=== PATIENT | male | born 1965 | race Caucasian/White ===

== ENCOUNTER → 2017-03-02 13:29 | Outpatient (CLI) | payer BC ==
[2014-12-26 10:28] VITALS: BMI 33.3
[~2017-03-02 13:29] MED LIST: ALBUTEROL2.5 MG/3 M INH; BENZONATATE200 MG PO; BREO ELLIPTA 21 EACH IH; ELIQUIS5 MG PO; FEXOFENADINE HC60 MG PO; FLUTICASONE PRO16 GM NASAL; IPRAT-ALBUT 0.5-3 ML UPD; LEVAQUIN500 MG PO; PROTONIX40 MG PO; SINGULAIR10 MG PO; TRICOR145 MG PO; ZANTAC150 MG PO
== END | disposition home or self-care (01) ==
LOC: D.US 13:29
DX: R60.0 Localized edema (principal); M25.561 Pain in right knee

== ENCOUNTER 2017-03-29 00:08 | Inpatient (IN) | payer BC ==
[~2017-03-29] VITALS: Ht 185.4 cm; Wt 94.7 kg
[~2017-03-29 00:08] MED LIST changes: -ALBUTEROL2.5 MG/3 M INH; -BENZONATATE200 MG PO; -BREO ELLIPTA 21 EACH IH; -ELIQUIS5 MG PO; -FEXOFENADINE HC60 MG PO; -FLUTICASONE PRO16 GM NASAL; -IPRAT-ALBUT 0.5-3 ML UPD; -LEVAQUIN500 MG PO; -PROTONIX40 MG PO; -SINGULAIR10 MG PO; -TRICOR145 MG PO
[2017-03-29 00:38] LABS: BASOPHILS 0.2 % (0-2); EOSINOPHILS 2.1 % (0-7); HEMATOCRIT 42.8 % (42.0-54.0); HEMOGLOBIN 14.7 g/dL (13.5-17.5); IMMATURE GRANULOCYTES 0.4 % (0-5); LYMPHOCYTES 7.9 % (15-50); MCH 30.9 pg (26.0-34.0); MCHC 34.3 g/dL (31.0-37.0); MCV 89.9 fL (80.0-100.0); MEAN PLATELET VOLUME 9.9 fL (7.4-10.4); MONOCYTES 8.6 % (2-11); NEUTROPHILS 80.8 % (40-80); PLATELET COUNT 188 10x3/uL (130-400); RBC 4.76 10x6/uL (4.20-6.10); RDW 13.3 % (11.5-14.5); WBC 9.5 10x3/uL (4.8-10.8)
[2017-03-29 00:56] LABS: ALBUMIN 4.2 g/dL (3.4-5.0); ALKALINE PHOSPHATASE 98 U/L (46-116); ALT (SGPT) 51 U/L (10-68); BILIRUBIN - TOTAL 0.79 mg/dL (0.2-1.3); CALC OSMOLALITY 278 mosm/kg (275-300); CALCIUM 9.4 mg/dL (8.5-10.1); CARBON DIOXIDE 23.8 mmol/L (21.0-32.0); CHLORIDE - SERUM 102 mmol/L (98-107); CREATININE - SERUM 1.3 mg/dL (0.6-1.3); GLUCOSE 118 mg/dL (74-106); INR 1.05 (0.85-1.17); POTASSIUM - SERUM 3.9 mmol/L (3.5-5.1); PROTEIN - SERUM 7.3 g/dL (6.4-8.2); PROTIME 13.3 SECONDS (11.6-15.0); SODIUM 138 mmol/L (136-145); UREA NITROGEN 17 mg/dL (7-18); eGFR NON AFRICAN AMERICAN 62 mL/min (90-120)
[2017-03-29 00:59] LABS: LIPASE 154 U/L (73-393)
[2017-03-29 01:00] LABS: TROPONIN-I < 0.017 ng/mL (0.000-0.060)
[2017-03-29 01:10] LABS: D-DIMER-QUANTITATIVE < 0.27 ug/mLFEU (0.20-0.54)
[2017-03-29] MEDS ORDERED: ELIQUIS5 MG PO (03:45)
[2017-03-29] MEDS ORDERED: TRICOR145 MG PO (03:45)
[2017-03-29 04:19] VITALS: Ht 185.4 cm; Wt 94.7 kg
[2017-03-29 05:14] VITALS: BP 106/59
[2017-03-29 06:12] LABS: BASOPHILS 0.5 % (0-2); EOSINOPHILS 1.1 % (0-7); HEMATOCRIT 40.2 % (42.0-54.0); HEMOGLOBIN 13.6 g/dL (13.5-17.5); IMMATURE GRANULOCYTES 0.5 % (0-5); LYMPHOCYTES 4.8 % (15-50); MCH 30.6 pg (26.0-34.0); MCHC 33.8 g/dL (31.0-37.0); MCV 90.5 fL (80.0-100.0); MEAN PLATELET VOLUME 10.3 fL (7.4-10.4); MONOCYTES 5.2 % (2-11); NEUTROPHILS 87.9 % (40-80); PLATELET COUNT 161 10x3/uL (130-400); RBC 4.44 10x6/uL (4.20-6.10); RDW 13.5 % (11.5-14.5)
[2017-03-29 06:14] LABS: WBC 6.3 10x3/uL (4.8-10.8)
[2017-03-29 06:38] LABS: ALBUMIN 3.6 g/dL (3.4-5.0); ALKALINE PHOSPHATASE 81 U/L (46-116); ALT (SGPT) 43 U/L (10-68); BILIRUBIN - TOTAL 0.87 mg/dL (0.2-1.3); CALC OSMOLALITY 280 mosm/kg (275-300); CALCIUM 8.7 mg/dL (8.5-10.1); CARBON DIOXIDE 24.8 mmol/L (21.0-32.0); CHLORIDE - SERUM 105 mmol/L (98-107); CREATININE - SERUM 1.1 mg/dL (0.6-1.3); GLUCOSE 116 mg/dL (74-106); POTASSIUM - SERUM 3.8 mmol/L (3.5-5.1); PROTEIN - SERUM 6.5 g/dL (6.4-8.2); SODIUM 140 mmol/L (136-145); UREA NITROGEN 14 mg/dL (7-18); eGFR NON AFRICAN AMERICAN 75 mL/min (90-120)
[2017-03-29 08:00] VITALS: BP 101/53
[2017-03-29 11:22] VITALS: BP 128/64
[2017-03-29 16:06] VITALS: BP 108/61
[2017-03-29 20:00] VITALS: BP 121/67
[2017-03-30] VITALS: BP 113/54
[2017-03-30 04:00] VITALS: BP 103/47
[2017-03-30 06:35] LABS: BASOPHILS 0 % (0-2); EOSINOPHILS 0 % (0-7); HEMATOCRIT 39.6 % (42.0-54.0); HEMOGLOBIN 13.4 g/dL (13.5-17.5); IMMATURE GRANULOCYTES 0.4 % (0-5); LYMPHOCYTES 6.6 % (15-50); MCH 30.7 pg (26.0-34.0); MCHC 33.8 g/dL (31.0-37.0); MCV 90.8 fL (80.0-100.0); MEAN PLATELET VOLUME 10.6 fL (7.4-10.4); MONOCYTES 8.7 % (2-11); NEUTROPHILS 84.3 % (40-80); PLATELET COUNT 173 10x3/uL (130-400); RBC 4.36 10x6/uL (4.20-6.10); RDW 13.2 % (11.5-14.5)
[2017-03-30 06:46] LABS: WBC 8.3 10x3/uL (4.8-10.8)
[2017-03-30 06:48] LABS: CALC OSMOLALITY 282 mosm/kg (275-300); CALCIUM 9.1 mg/dL (8.5-10.1); CARBON DIOXIDE 25.6 mmol/L (21.0-32.0); CHLORIDE - SERUM 106 mmol/L (98-107); GLUCOSE 158 mg/dL (74-106); SODIUM 140 mmol/L (136-145); UREA NITROGEN 14 mg/dL (7-18); eGFR NON AFRICAN AMERICAN 84 mL/min (90-120)
[2017-03-30 07:00] VITALS: BP 111/64
[2017-03-30 12:48] VITALS: BP 127/73
[2017-03-30 17:31] VITALS: BP 123/72
[2017-03-30 21:30] VITALS: BP 125/64
[2017-03-31 06:05] LABS: BASOPHILS 0 % (0-2); EOSINOPHILS 0 % (0-7); HEMATOCRIT 39.6 % (42.0-54.0); HEMOGLOBIN 13.2 g/dL (13.5-17.5); IMMATURE GRANULOCYTES 0.4 % (0-5); LYMPHOCYTES 8.1 % (15-50); MCH 30.4 pg (26.0-34.0); MCHC 33.3 g/dL (31.0-37.0); MCV 91.2 fL (80.0-100.0); MONOCYTES 10.3 % (2-11); NEUTROPHILS 81.2 % (40-80); PLATELET COUNT 150 10x3/uL (130-400); RBC 4.34 10x6/uL (4.20-6.10); RDW 13.5 % (11.5-14.5); WBC 7.4 10x3/uL (4.8-10.8)
[2017-03-31 06:11] VITALS: BP 119/71
[2017-03-31 06:24] LABS: CALC OSMOLALITY 283 mosm/kg (275-300); CALCIUM 8.7 mg/dL (8.5-10.1); CHLORIDE - SERUM 106 mmol/L (98-107); GLUCOSE 122 mg/dL (74-106); POTASSIUM - SERUM 3.6 mmol/L (3.5-5.1); SODIUM 141 mmol/L (136-145); eGFR NON AFRICAN AMERICAN 84 mL/min (90-120)
[2017-03-31 06:26] LABS: UREA NITROGEN 18 mg/dL (7-18)
[2017-03-31 08:01] VITALS: BP 116/64
[2017-03-31 11:50] VITALS: BP 141/61
[2017-03-31 15:12] VITALS: BP 151/70
[2017-03-31 20:00] VITALS: BP 133/70
[2017-04-01] VITALS: BP 108/58
[2017-04-01 04:00] VITALS: BP 120/60
[2017-04-01 06:22] LABS: BASOPHILS 0 % (0-2); EOSINOPHILS 0 % (0-7); HEMATOCRIT 38.7 % (42.0-54.0); IMMATURE GRANULOCYTES 0.6 % (0-5); LYMPHOCYTES 8.9 % (15-50); MCH 30.5 pg (26.0-34.0); MCHC 33.6 g/dL (31.0-37.0); MCV 90.8 fL (80.0-100.0); MEAN PLATELET VOLUME 10.3 fL (7.4-10.4); MONOCYTES 6.5 % (2-11); PLATELET COUNT 142 10x3/uL (130-400); RBC 4.26 10x6/uL (4.20-6.10); RDW 13.6 % (11.5-14.5); WBC 6.3 10x3/uL (4.8-10.8)
[2017-04-01 06:39] LABS: CALC OSMOLALITY 282 mosm/kg (275-300); CALCIUM 8.5 mg/dL (8.5-10.1); CARBON DIOXIDE 25.6 mmol/L (21.0-32.0); CHLORIDE - SERUM 104 mmol/L (98-107); CREATININE - SERUM 0.9 mg/dL (0.6-1.3); GLUCOSE 149 mg/dL (74-106); POTASSIUM - SERUM 3.6 mmol/L (3.5-5.1); SODIUM 140 mmol/L (136-145); UREA NITROGEN 14 mg/dL (7-18); eGFR NON AFRICAN AMERICAN > 90 mL/min (90-120)
[2017-04-01 07:39] VITALS: BP 115/85
[2017-04-01 10:48] VITALS: BP 135/79
[2017-04-01] MEDS ORDERED: ALBUTEROL2.5 MG/3 M INH (12:37)
[2017-04-01] MEDS ORDERED: BENZONATATE200 MG PO (12:41)
[2017-04-01] MEDS ORDERED: IPRAT-ALBUT 0.5-3 ML UPD (12:41)
[2017-04-01] MEDS ORDERED: BREO ELLIPTA 21 EACH IH (12:42)
[2017-04-01] MEDS ORDERED: PROTONIX40 MG PO (12:43)
[2017-04-01] MEDS ORDERED: FLUTICASONE PRO16 GM NASAL (12:43)
[2017-04-01] MEDS ORDERED: SINGULAIR10 MG PO (12:43)
[2017-04-01] MEDS ORDERED: LEVAQUIN500 MG PO (12:44)
[2017-04-01] MEDS ORDERED: FEXOFENADINE HC60 MG PO (12:44)
== END 2017-04-01 17:02 | disposition home or self-care (01) | DRG 202 ==
LOC: D.ER 00:08 → D.M2 03:08
PROVIDERS: Emergency Medicine; Family Medicine; Nurse Practitioner Family
DX: J45.901 Unspecified asthma with (acute) exacerbation (principal); J98.11 Atelectasis; E78.5 Hyperlipidemia, unspecified; Z86.718 Personal history of other venous thrombosis and embolism; Z79.01 Long term (current) use of anticoagulants; K21.9 Gastro-esophageal reflux disease without esophagitis; F32.9 Major depressive disorder, single episode, unspecified; G47.33 Obstructive sleep apnea (adult) (pediatric); R09.82 Postnasal drip; J32.9 Chronic sinusitis, unspecified

== ENCOUNTER → 2017-09-01 12:37 | Outpatient (CLI) | payer BC ==
[~2017-09-01 12:37] MED LIST changes: +ALBUTEROL2.5 MG/3 M INH; +BENZONATATE200 MG PO; +BREO ELLIPTA 21 EACH IH; +ELIQUIS5 MG PO; +FEXOFENADINE HC60 MG PO; +FLUTICASONE PRO16 GM NASAL; +IPRAT-ALBUT 0.5-3 ML UPD; +LEVAQUIN500 MG PO; +PROTONIX40 MG PO; +SINGULAIR10 MG PO; +TRICOR145 MG PO
[2017-09-04 03:11] LABS: IMMUNOGLOBULIN E 72 IU/mL (0-100)
== END | disposition home or self-care (01) ==
LOC: D.RT 12:37
PROVIDERS: Internal Medicine Pulmonary Disease
DX: J98.11 Atelectasis (principal); I82.409 Acute embolism and thrombosis of unspecified deep veins of unspecified lower extremity; J45.909 Unspecified asthma, uncomplicated

== ENCOUNTER → 2019-12-19 19:10 | Outpatient (CLI) | payer OTHER ==
[2019-12-19 19:47] LABS: BASOPHILS 0.3 % (0-2); HEMATOCRIT 44.2 % (42.0-54.0); IMMATURE GRANULOCYTES 0.3 % (0-5); LYMPHOCYTES 14.6 % (15-50); MCHC 33.9 g/dL (31.0-37.0); MCV 91.3 fL (80.0-100.0); MEAN PLATELET VOLUME 9.9 fL (7.4-10.4); MONOCYTES 5.8 % (2-11); RBC 4.84 10x6/uL (4.20-6.10); RDW 13.2 % (11.5-14.5); WBC 7.3 10x3/uL (4.8-10.8)
[2019-12-19 20:03] LABS: PLATELET COUNT 192 10x3/uL (130-400)
== END | disposition home or self-care (01) ==
LOC: D.LABREF 19:10
PROVIDERS: ATTEND Internal Medicine Pulmonary Disease
DX: J45.909 Unspecified asthma, uncomplicated (principal)

== ENCOUNTER → 2019-12-26 20:23 | Outpatient (CLI) | payer OTHER | END | disposition home or self-care (01) | LOC: D.LABREF 20:23 | PROVIDERS: ATTEND Internal Medicine Pulmonary Disease | DX: J45.909 Unspecified asthma, uncomplicated (principal) ==